=== PATIENT | male | born 1970 | race African-American/Black ===

== ENCOUNTER 2023-09-18 09:59 | Emergency (ER) | payer MEDICAID ==
[~2023-09-18] VITALS: Ht 177.8 cm; Wt 75.0 kg
[2023-09-18 10:09] VITALS: O2SAT 99
[2023-09-18] MEDS: LIDOCAINE 5% PATCH TOP ONE (11:00)
[2023-09-18] MEDS ORDERED: CYCL7.5T25 MT (11:17)
[2023-09-18 11:33] VITALS: BP 133/85; PULSE 77; RESP 16; TEMP 97.8
== END 2023-09-18 11:34 | disposition home or self-care (01) ==
LOC: ER 09:59
DX: M62.830 Muscle spasm of back (principal); F17.200 Nicotine dependence, unspecified, uncomplicated; F12.10 Cannabis abuse, uncomplicated
CPT/HCPCS: 99283; Z7610